=== PATIENT | male | born 1960 | race African-American/Black ===

== ENCOUNTER 2020-01-24 11:28 | Emergency (ER) | payer OTHER ==
[~2020-01-24] VITALS: Ht 157.5 cm; Wt 71.7 kg
[2020-01-24] MEDS ORDERED: NORVASC5 MG (11:46)
== END 2020-01-24 14:43 | disposition home or self-care (01) ==
LOC: ER 11:28
DX: M54.89 Other dorsalgia (principal); R14.0 Abdominal distension (gaseous); Z03.818 Encounter for observation for suspected exposure to other biological agents ruled out